=== PATIENT | female | born 1995 | race Caucasian/White ===

== ENCOUNTER 2017-01-19 21:25 | Emergency (ER) | payer OTHER ==
[~2017-01-19] VITALS: Ht 167.6 cm; Wt 92.4 kg
[~2017-01-19 21:25] MED LIST: BCPILLS PO; PHEN37.585 PO; SPIR25TA PO
[2017-01-19 21:31] VITALS: TEMP 36.7; Ht 167.6 cm; Wt 92.4 kg
[2017-01-19] MEDS ORDERED: SODIUM CHLORIDE 0.9% 1000ML 1,000 ML IV STA ×3 (21:47→23:19)
[2017-01-19] MEDS ORDERED: ONDANSETRON INJ 2 MG/ML 2 ML VIAL IV STA (21:47)
[2017-01-19] MEDS ORDERED: DICYCLOMINE HCL 10 MG/ML 2 ML AMP IM ONE (22:00)
[2017-01-19 22:17] LABS: BASO % 0.1 %; BASO ABS # 0.01 K/uL (0-0.2); COMPLETE YES; EOS % 0.1 %; HEMATOCRIT 42.8 % (37-47); IG% 0.3 %; LYMPH ABS # 1.26 K/uL (1.2-3.4); MEAN CELL VOLUME 81.8 fL (80-100); MEAN CORPUSCULAR HEMOGLOBIN 29.4 pg (25-34); MEAN PLATELET VOLUME 10.7 fL (7.4-10.4); MONO % 5.5 %; PLATELET COUNT 262 K/uL (130-400); RED BLOOD COUNT 5.23 M/uL (4.2-5.4); WHITE BLOOD COUNT 9.03 K/uL (4.8-10.8)
[2017-01-19 22:30] VITALS: O2SAT 100
[2017-01-19 22:37] LABS: CALCIUM 8.4 mg/dl (8.5-10.1); CREATININE 0.65 mg/dl (0.60-1.20); MAGNESIUM 1.8 mg/dl (1.8-2.4); POTASSIUM 3.3 mmol/L (3.5-5.1)
[2017-01-19 22:38] LABS: PREG INTERNAL NEGATIVE QC NEG CLEAR BACKGROUND; PREG INTERNAL POSITIVE QC POS CONTROL LINE
[2017-01-19] MEDS ORDERED: POTASSIUM CHLORIDE 10 MEQ TABCR PO STA (22:48)
[2017-01-19] MEDS ORDERED: KETOROLAC TROMETHAMINE 30 MG/ML VIAL IV STA (23:19)
[2017-01-20 00:31] LABS: URINE APPEARANCE CLOUDY (CLEAR); URINE BILIRUBIN NEG (NEG); URINE COLOR DK YELLOW; URINE EPITHELIAL CELL AUTO >30 /lpf (0-5); URINE NITRITE NEG (NEG); URINE SPECIFIC GRAVITY 1.028 (1.000-1.030); UROBILINOGEN NEG (NEG); ZZUR CULT IF INDIC CLEAN CATCH NO
[2017-01-20 00:47] LABS: MANUAL MICROSCOPIC REQUIRED? NO; REVIEW REQ? YES
[2017-01-20] MEDS ORDERED: DiphenhydrAMINE HCL 50 MG/ML VIAL IV STA (01:07)
[2017-01-20] MEDS ORDERED: METOCLOPRAMIDE HCL INJ 5 MG/ML 2 ML VIAL IV STA (01:07)
[2017-01-20 01:29] LABS: URINE MUCUS PRESENT (NONE PRSENT)
[2017-01-20] MEDS ORDERED: BENTYL HOME PACK 10 MG VIAL PO ONE (01:30)
[2017-01-20] MEDS ORDERED: ONDANSETRON HOME PACK 4MG OD TAB PO ONE (01:30)
[2017-01-20 01:32] LABS: URINE PATH CASTS 5-10 GRANULAR CASTS /lpf (0)
--- NOTE | 2017-01-20 01:44 | EMERGENCY ROOM VISIT NOTE ---
History First contact with patient: 21:36 Chief Complaint: ABDOMINAL PAIN Stated Complaint: DIZZY, ABD PAIN, DIARRHEA Nursing Triage Summary: pt reports " I have been pooping for 3 days it is so bad it makes me cry, and at work today I pooped my pants multiple time" pt denies blood in stool, + abdominal cramping , denies NV History of Present Illness The patient is a 21 year old female who presents to the Emergency Room with complaints of nausea, lightheadedness, fatigue and diarrhea for the past 3 days. Patient is on well water. No recent antibiotics. No recent travel. No sick contacts. No bad food exposure. Patient with several episodes of diarrhea that is nonbloody nonblack and tarry non-mucousy in nature. 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 Patient complains of some abdominal cramping with no localized pain. Patient denies chest pain, dyspnea, fever, cough, congestion, vomiting, back pain, urinary symptoms. She is tolerate by mouth fluids but has a lack of appetite. Review of Systems See HPI for pertinent positives & negatives. A total of 10 systems reviewed and were otherwise negative. Past Medical/Surgical History Acne Social History Smoking Status: Never Smoker Alcohol Use: occasionally Drug Use: none Marital Status: single, in relationship Housing Status: lives with family Occupation Status: employed Current/Historical Medications Scheduled Control Pills ( Control Pills), 1 TAB PO DAILY Spironolactone (Aldactone), 25 MG PO QPM Physical Exam Vital Signs Date Time Temp Pulse Resp B/P (MAP) Pulse Ox O2 Delivery O2 Flow Rate FiO2 01/20/17 00:41 95 20 110/69 99 Room Air 01/19/17 22:34 90 01/19/17 22:30 91 20 149/77 100 Room Air 01/19/17 22:30 100 Room Air 01/19/17 21:31 36.7 118 20 126/92 98 Room Air Physical Exam VITALS: Vitals are noted on the nurse's note and reviewed by myself. Vital signs stable. GENERAL: Pleasant female, in no acute distress, nondiaphoretic, well-developed well-nourished. SKIN: The skin was without rashes, erythema, edema, or bruising. There is no tenting of the skin. Capillary reflex less than 2 seconds. HEAD: Normocephalic atraumatic. EARS: External auditory canals clear, tympanic membranes pearly monteiro without erythema or effusion bilaterally. EYES: Pupils equal round and reactive to light and accommodation. Conjunctivae without injection, sclerae without icterus. Extraocular movements intact. NOSE: Patent, turbinates without inflammation or discharge. MOUTH: Mucous membranes mildly dry. Pharynx without erythema or exudate. Uvula midline. Airway patent. Tongue does not deviate. NECK: Supple without nuchal rigidity. No lymphadenopathy. No thyromegaly. Cervical spine is nontender. No JVD. HEART: Regular rate and rhythm without murmurs gallops or rubs. LUNGS: Clear to auscultation bilaterally without wheezes, rales or rhonchi. No dullness to percussion. No retractions or accessory muscle use. ABDOMEN: Positive bowel sounds x 4. Normal tympanic percussion. Soft, nontender, without masses or organomegaly. Damno sign negative. No guarding or rebound tenderness. No CVA tenderness MUSCULOSKELETAL: No muscle atrophy, erythema, or edema noted. NEURO: Patient was alert and oriented to person place and time. Normal sensation to light and sharp touch. No focal neurological deficits. Medical Decision & Procedures Laboratory Results 01/19/17 22:00 Red Blood Count 5.23, Mean Corpuscular Volume 81.8, Mean Corpuscular Hemoglobin 29.4, Mean Corpuscular Hemoglobin Concent 36.0, Mean Platelet Volume 10.7, Neutrophils (%) (Auto) 80.0, Lymphocytes (%) (Auto) 14.0, Monocytes (%) (Auto) 5.5, Eosinophils (%) (Auto) 0.1, Basophils (%) (Auto) 0.1, Neutrophils # (Auto) 7.22, Lymphocytes # (Auto) 1.26, Monocytes # (Auto) 0.50, Eosinophils # (Auto) 0.01, Basophils # (Auto) 0.01 01/19/17 22:00 Test 01/19/17 22:00 01/19/17 23:50 White Blood Count 9.03 K/uL (4.8-10.8) Red Blood Count 5.23 M/uL (4.2-5.4) Hemoglobin 15.4 g/dL (12.0-16.0) Hematocrit 42.8 % (37-47) Mean Corpuscular Volume 81.8 fL (80-100) Mean Corpuscular Hemoglobin 29.4 pg (25-34) Mean Corpuscular Hemoglobin Concent 36.0 g/dl (32-36) Platelet Count 262 K/uL (130-400) Mean Platelet Volume 10.7 fL (7.4-10.4) Neutrophils (%) (Auto) 80.0 % Lymphocytes (%) (Auto) 14.0 % Monocytes (%) (Auto) 5.5 % Eosinophils (%) (Auto) 0.1 % Basophils (%) (Auto) 0.1 % Neutrophils # (Auto) 7.22 K/uL (1.4-6.5) Lymphocytes # (Auto) 1.26 K/uL (1.2-3.4) Monocytes # (Auto) 0.50 K/uL (0.11-0.59) Eosinophils # (Auto) 0.01 K/uL (0-0.5) Basophils # (Auto) 0.01 K/uL (0-0.2) RDW Standard Deviation 38.4 fL (36.4-46.3) RDW Coefficient of Variation 12.7 % (11.5-14.5) Immature Granulocyte % (Auto) 0.3 % Immature Granulocyte # (Auto) 0.03 K/uL (0.00-0.02) Anion Gap 11.0 mmol/L (3-11) Est Creatinine Clear Calc Drug Dose 156.7 ml/min Estimated GFR () 147.1 Estimated GFR (Non- 126.9 BUN/Creatinine Ratio 14.0 (10-20) Calcium Level 8.4 mg/dl (8.5-10.1) Magnesium Level 1.8 mg/dl (1.8-2.4) Total Bilirubin 0.6 mg/dl (0.2-1) Direct Bilirubin 0.2 mg/dl (0-0.2) Aspartate Amino Transf (AST/SGOT) 25 U/L (15-37) Alanine Aminotransferase (ALT/SGPT) 22 U/L (12-78) Alkaline Phosphatase 70 U/L (45-117) Total Protein 7.1 gm/dl (6.4-8.2) Albumin 3.2 gm/dl (3.4-5.0) Human Chorionic Gonadotropin, Qual NEG (NEG) Urine Color DK YELLOW Urine Appearance CLOUDY (CLEAR) Urine pH 6.0 (4.5-7.5) Urine Specific Rarden 1.028 (1.000-1.030) Urine Protein 1+ (NEG) Urine Glucose (UA) NEG (NEG) Urine Ketones 1+ (NEG) Urine Occult Blood NEG (NEG) Urine Nitrite NEG (NEG) Urine Bilirubin NEG (NEG) Urine Urobilinogen NEG (NEG) Urine Leukocyte Esterase NEG (NEG) Urine WBC (Auto) 5-10 /hpf (0-5) Urine RBC (Auto) 0-4 /hpf (0-4) Urine Hyaline Casts (Auto) 10-30 /lpf (0-5) Urine Epithelial Cells (Auto) >30 /lpf (0-5) Urine Bacteria (Auto) 1+ (NEG) Urine Renal Epithelial Cells /lpf (0-5) Urine Pathogenic Casts 5-10 GRANULAR CASTS /lpf (0) Urine Mucus PRESENT (NONE PRSENT) Date/Time Source Procedure Growth Status 01/19/17 23:50 Stool C.difficile Toxin B Gene (PCR) - Final No C. difficile toxin B gene detected Complete Medications Administered Medications (Trade) Dose Ordered Sig/May Route Start Time Stop Time Status Last Admin Dose Admin Sodium Chloride 1,000 ml @ 999 mls/hr Q1H1M STAT IV 01/19/17 21:47 01/19/17 22:47 DC 01/19/17 22:26 999 MLS/HR Dicyclomine HCl (Bentyl Inj) 20 mg NOW ONCE IM 01/19/17 22:00 01/19/17 22:01 DC 01/19/17 22:28 20 MG Ondansetron HCl (Zofran Inj) 4 mg NOW STAT IV 01/19/17 21:47 01/19/17 21:49 DC 01/19/17 22:27 4 MG Potassium Chloride (Klor-Con M10) 20 meq NOW STAT PO 01/19/17 22:48 01/19/17 22:49 DC 01/19/17 23:35 20 MEQ Ketorolac Tromethamine (Toradol Inj) 30 mg NOW STAT IV 01/19/17 23:19 01/19/17 23:20 DC 01/19/17 23:35 30 MG Sodium Chloride 1,000 ml @ 999 mls/hr Q1H1M STAT IV 01/19/17 23:19 01/20/17 00:19 DC 01/19/17 23:19 999 MLS/HR Metoclopramide HCl (Reglan Inj) 10 mg NOW STAT IV 01/20/17 01:07 01/20/17 01:08 DC 01/20/17 01:30 10 MG Diphenhydramine HCl (Benadryl Inj) 12.5 mg NOW STAT IV 01/20/17 01:07 01/20/17 01:08 DC 01/20/17 01:29 12.5 MG ED Course Prior records/ancillary studies reviewed. Triage Nursing notes reviewed. Additional history obtained from the family. The patient's history was concerning for nausea diarrhea, and abdominal pain. Differential diagnosis: Etiologies such as gastroenteritis, food borne illness, infections, appendicitis , diverticulitis, inflammatory bowel disease, obstruction, GI bleed, biliary pathology, as well as others were entertained. Physical examination findings: As above. Abdominal examination revealed no localized tenderness. Vital signs reviewed and revealed stable. ER treatment provided: IV hydration 1 L NSS. Hong Sosa On reassessment the patient felt better. Patient was tolerating p.o. intake. Diagnostics interpretation by me: The labs revealed no leukocytosis. Negative urine. Negative C. difficile. Stool cultures pending This appears to be consistent with nausea and diarrhea. Stool cultures are pending. Patient is neurovascularly and neurologically intact. She is well- appearing. She did not have acute abdomen on exam. She is tolerating fluids. She is advised to rest, stay well-hydrated and to follow a bland diet for next few days and follow-up family care here in the ER sooner for abdominal pain, fevers, vomiting, worsening signs or symptoms or as needed. By the evaluation outlined above emergent etiologies such as appendicitis, diverticulitis, obstruction, cardiac sources, mesenteric ischemia, aortic pathology, inflammatory bowel disease, renal colic, PUD, biliary pathology, UTI, as well as others were deemed relatively unlikely. The pt informed about the findings as listed above. All questions were answered and pleased with the treatment. Return instructions were outlined and the patient was discharged in stable condition. Outpatient prescription management: hong sosa Referral: The patient was referred to their primary care physician for follow-up in 2 to 3 days for a recheck of the current condition. Case reviewed with my attending Medical Decision As above Medication Reconcilliation Current Medication List: was personally reviewed by me Blood Pressure Screening Patient's blood pressure: Normal blood pressure Impression Primary Impression: Diarrhea Additional Impressions: Nausea Dehydration Departure Information Dispostion Home / Self-Care Condition GOOD Referrals Fabienne Calvert PA (PCP) Patient Instructions My [facility] Additional Instructions DO NOT drive, drink alcohol, operate machinery, or perform dangerous activities today. You were given medications in the ER that can affect your ability to safely function or operate a vehicle. Bentyl tablets 10mg: Take one every six hours as needed for abdominal cramping. Zofran(odansetron) tablets 4mg: Take one and allow it to dissolve in your mouth every four to six hours as needed for nausea or vomiting. Ibuprofen(Motrin, Advil) may be used for fever or pain. Use 600mg every six hours as needed. Take with food. Avoid using more than 2400mg in a 24 hour period. Do not use 2400mg per day for more than three consecutive days without physician direction. Prolonged inappropriate use can lead to stomach upset or ulcers. (AND/OR) Acetaminophen(Tylenol) may be used for fever or pain. Use 1000mg every six hours as needed. Avoid using more than 3000mg in a 24 hour period. Rest and drink plenty of fluids as tolerated. Slow sips of water or sports drinks are recommended instead of large amounts all at once. Continue current medications. Once your stomach is settled start with a clear liquid diet (jello, soup broth, etc.) and then advance as tolerated. You should avoid full, heavy meals for about 24 hrs from the time your symptoms resolved. Recommend bland diet for the next few days. Return to the ER for persistent vomiting, fevers, abdominal pain, chest pains, difficulty breathing, black or bloody stools, worsening of your condition, or as needed. Follow up with your primary physician in 2-3 days for a recheck of your current condition. Problem Qualifiers Primary Impression: Diarrhea Diarrhea type: unspecified type Qualified Codes: R19.7 - Diarrhea, unspecified
[2017-01-20 01:59] VITALS: BP 121/71; PULSE 88; O2SAT 95
[2017-01-21 17:12] LABS: O&P GIARDIA AG NOT DETECTED (NOT DETECTED)
== END 2017-01-20 01:59 | disposition home or self-care (01) ==
LOC: C.EDB 21:27 → C.EDA 01-20 01:59
DX: R19.7 Diarrhea, unspecified (principal); R11.0 Nausea; E86.0 Dehydration; Z79.3 Long term (current) use of hormonal contraceptives

== ENCOUNTER 2019-02-05 13:30 | Inpatient (IN) ==
[2019-02-05] MEDS ORDERED: OXYTOCIN 30 UNITS/500 ML BAG IV PRN (18:59)
[2019-02-05] MEDS ORDERED: DINOPROSTONE 10 MG INSERT PV ONE (18:59)
[2019-02-05 19:31] LABS: Hematocrit (blood only) 32.7 % (37-47); Hemoglobin 11.1 g/dL (12.0-16.0); Mean Corpuscular Volume 85.6 fL (80-100); Mean Platelet Volume 11.3 fL (7.4-10.4); Platelet Count 321 K/uL (130-400); RDW Coefficient of Variation 14.2 % (11.5-14.5); RDW Standard Deviation 43.5 fL (36.4-46.3); Red Blood Count 3.82 M/uL (4.2-5.4); White Blood Count 13.48 K/uL (4.8-10.8)
[2019-02-05 19:34] LABS: Mean Corpuscular Hgb Conc 33.9 g/dL (32-36)
[2019-02-05 19:51] LABS: Alanine Aminotransferase 15 U/L (12-78); Albumin Level 2.3 gm/dl (3.4-5.0); Aspartate Aminotransferase 12 U/L (15-37); BUN Creatinine Ratio 13.2 (10-20); Blood Urea Nitrogen 7 mg/dl (7-18); Calcium 8.4 mg/dl (8.5-10.1); Carbon Dioxide 22 mmol/L (21-32); Chloride 109 mmol/L (98-107); Creatinine Clr Calc Pharmacy 203.3 ml/min; Est GFR (African American) > 150.0; Est GFR (Non-African American) 132.2; Glucose 94 mg/dl (70-99); Potassium 3.2 mmol/L (3.5-5.1); Sodium 142 mmol/L (136-145)
[2019-02-05 19:54] LABS: Albumin Globulin Ratio 0.6 (0.9-2); Alkaline Phosphatase 152 U/L (45-117); Bilirubin,Total 0.6 mg/dl (0.2-1); Globulin 3.9 gm/dl (2.5-4.0); Total Protein 6.2 gm/dl (6.4-8.2)
[2019-02-05] MEDS ORDERED: BUTORPHANOL TARTRATE 1 MG/ML VIAL IV PRN (21:51)
--- NOTE | 2019-02-05 21:57 | Labor Progress Brief Note ---
Date of Service February 05, 2019 Induction for Class II obesity pt doing well'H&P done FHR; CAT1 Ctx minimal VE 1-2/50/-3 Cervidil #1 inserted in vagina Results & Data Vital Signs (Past 12 Hours) Vital Signs Temp Pulse Resp BP 02/05/19 21:49 88 139/80 02/05/19 19:09 37 C 18 02/05/19 18:59 100 H 140/75
--- NOTE | 2019-02-05 23:47 | History and Physical Report ---
DATE OF ADMISSION: 02/05/2019 HISTORY OF PRESENT ILLNESS: The patient is a 23-year-old G1, P0, due date 02/07/2019, making her 39 weeks and 5 days today. The patient presented to labor and delivery for labor induction due to class 2 morbid obesity. has been unremarkable. On arrival to labor and delivery, she had no shortness of breath, no chills, no fever, no rupture of membranes. LABORATORIES: Blood type O negative, antibody negative, rubella immune, GBS negative. PAST MEDICAL HISTORY: None. PAST SURGICAL HISTORY: The patient has history of tonsillectomy. ALLERGIES: The patient has no known drug allergies. FAMILY HISTORY: Noncontributory. PHYSICAL EXAMINATION: GENERAL: Well-nourished white female in no acute distress. HEART: S1, S2, regular rhythm and rate. LUNGS: Clear to auscultation bilaterally. ABDOMEN: Gravid. EXTREMITIES: No cyanosis, clubbing or edema. PELVIC: 22 cm, 50% effaced, -3. Estimated weight by Isael's is 7-1/2 pounds. ASSESSMENT AND PLAN: A 23-year-old G1, P0 at 39+ weeks, here for labor induction due to class 2 obesity. The patient is being induced. Anticipate vaginal delivery.
--- NOTE | 2019-02-06 10:07 | Obstetrical Progress Note ---
Date of Service February 06, 2019 Subjective Cervidil pulled out. T Cat 1. Cervix 1-2/60/-3. Will start Cytotec 50 mcg orally every 4 hours to induce labor. Results & Data Vital Signs (Past 12 Hours) Vital Signs Temp Pulse Resp BP 02/06/19 09:24 102 H 139/67 02/06/19 07:45 36.7 C 20 02/06/19 07:40 95 H 145/66 H 02/06/19 06:17 85 132/65 02/06/19 03:56 36.9 C 96 H 18 136/86 02/06/19 01:39 97 H 129/57 L 02/06/19 01:38 16
[2019-02-06] MEDS: miSOPROStol 50 MCG TAB PO SCH ×2 (11:33→15:33)
[2019-02-06] MEDS ORDERED: ONDANSETRON INJ 2 MG/ML 2 ML VIAL IV PRN ×2 (16:43→18:46)
[2019-02-06] MEDS: LACTATED RINGER'S 1,000 ML IV PRN ×2 (18:26→20:48)
[2019-02-06] MEDS ORDERED: ePHEDrine sulfate 50 MG/ML AMP ONE (18:36)
[2019-02-06] MEDS ORDERED: fentaNYL citrate 100 MCG/2 ML VIAL ONE (18:36)
[2019-02-06] MEDS ORDERED: BUPIVACAINE 0.25% 30 ML VIAL ONE (18:36)
[2019-02-06] MEDS ORDERED: fentaNYL 2MCG/ML ROPIV 1.25MG/ML 100 ML BAG EPI ONE (18:37)
[2019-02-06] MEDS ORDERED: NALOXONE HCL 0.4 MG/1 ML VIAL/CARP IV PRN (18:46)
[2019-02-06] MEDS ORDERED: DiphenhydrAMINE HCL 50 MG/ML VIAL IV PRN (18:46)
[2019-02-06] MEDS ORDERED: ePHEDrine sulfate 50 MG/ML AMP IV PRN (18:46)
[2019-02-06] MEDS ORDERED: fentaNYL 2MCG/ML ROPIV 1.25MG/ML 100 ML BAG EPI PRN (18:46)
[2019-02-06] MEDS ORDERED: NALOXONE HCL 1 MG in SODIUM CHLORIDE 0.9% 1000ML 1,000 ML IV PRN (18:46)
[2019-02-06] MEDS ORDERED: NALBUPHINE HCL INJ 10 MG/ML AMP IV PRN (18:46)
--- NOTE | 2019-02-06 18:50 | Anesthesiology Consultation ---
Date of Service February 06, 2019 Assessment & Plan Chart Review Chart Review: Patient NOT seen in Pre Admission Testing and Acceptable Risk for Labor Epidural Consults Requested none ASA ASA2 Proposed Anesthesia Anesthesia Type: Labor Epidural and CSE Risk / Benefits Reviewed With: PT / POA / Parent / Guardian, Accepts Plan and Informed Consent Obtained History Height/Weight Height: 5 ft 6 in Weight: 113.398 kg Allergies Allergy/AdvReac Type Severity Reaction Status Date / Time No Known Allergies Allergy Verified 02/05/19 19:02 Medications Home Medications Medication Instructions Recorded Confirmed Last Taken Vitamin 1 tab PO DAILY 01/29/19 02/05/19 02/04/19 20:00 Active Medications Generic Name Dose Route Start Last Admin Trade Name Freq PRN Reason Stop Dose Admin Butorphanol Tartrate 2 mg 02/05/19 21:51 02/06/19 17:11 Stadol IV 03/07/19 21:50 2 mg Q4 PRN Administration Pain Lactated Ringer's 1,000 mls @ 125 mls/hr 02/05/19 18:59 02/06/19 18:26 Lr IV 02/07/19 18:58 999 mls/hr .Q8H PRN Administration L&D Protocol Protocol Misoprostol 50 mcg 02/06/19 12:00 02/06/19 15:33 Cytotec PO 03/08/19 11:59 50 mcg Q4 AYAKA Administration Ondansetron HCl 4 mg 02/06/19 16:43 02/06/19 16:55 Zofran IV 03/08/19 16:42 4 mg Q4H PRN Administration Nausea NPO Date Last Intake of Fluids: 02/06/19 Time Last Intake of Fluids: 18:00 Date Last Intake of Solids: 02/06/19 Time Last Intake of Solids: 13:00 Exercise / Class Metabolic Activity II 4-5 Yardwork/Stairs/Walk up hill Past Anesthesia History No Hx of Anesthesia Complications and No Family Hx of Anesthesia Complications History of PONV No Hx of PONV and No Hx of Motion Sickness Social History Smoking Status: Never smoker Hx Alcohol Use: No Hx Substance Use: No Review of Systems no chest pain or sob Physical Exam Vital Signs Last Vital Signs Temp 37.0 C 02/06/19 15:07 Pulse 79 02/06/19 18:46 Resp 20 02/06/19 15:07 BP 146/73 H 02/06/19 18:46 ENMT Mouth: no TMJ abnormality Thyromental Distance: > or= 3.5 Finger Breadths Mallampati Class: II Neck normal visual inspection Respiratory normal respiratory effort Auscultation: lungs clear to auscultation bilaterally Cardiovascular Rate/Rhythm: regular rate and regular rhythm Musculoskeletal Spine: normal cervical ROM Neurologic moves all extremities Psychiatric Orientation: alert and oriented x 3 Testing Laboratory Results 02/05/19 19:18 02/05/19 19:18
[2019-02-06] MEDS ORDERED: OXYTOCIN 30 UNITS/500 ML BAG IV PRN ×2 (19:47→23:22)
--- NOTE | 2019-02-06 19:47 | Obstetrical Progress Note ---
Date of Service February 06, 2019 Physical Exam Genitourinary: OB Exam Abdomen: + irregular contractions Manual OB Exam: + cervical dilation 5 cm, + cervical effacement 100% and + station -2 OB Exam Monitor Tracing: + external FHT monitor used, + external uterine monitor used and + category I Will start Oxytocin to augment contractions since not in a regular pattern Results & Data Vital Signs (Past 12 Hours) Vital Signs Temp Pulse Resp BP Pulse Ox 02/06/19 19:44 104 H 94 02/06/19 19:41 100 H 99 02/06/19 19:38 85 137/63 02/06/19 19:36 87 96 02/06/19 19:31 90 98 02/06/19 19:26 98 H 97 02/06/19 19:23 95 H 138/65 02/06/19 19:21 94 H 134/63 96 02/06/19 19:19 93 H 135/60 02/06/19 19:17 93 H 134/60 02/06/19 19:16 98 H 97 02/06/19 19:15 92 H 132/61 02/06/19 19:13 90 136/65 02/06/19 19:12 85 136/64 02/06/19 19:11 101 H 99 02/06/19 19:05 88 97 02/06/19 19:00 99 H 97 02/06/19 18:56 98 H 152/87 H 02/06/19 18:55 94 H 98 02/06/19 18:46 79 146/73 H 02/06/19 15:07 37.0 C 02/06/19 15:04 90 141/70 H 02/06/19 13:30 88 139/65 02/06/19 13:29 36.9 C 02/06/19 11:15 37 C 96 H 20 129/60 02/06/19 10:09 18 02/06/19 09:24 102 H 139/67
--- NOTE | 2019-02-06 21:20 | Obstetrical Progress Note ---
Date of Service February 06, 2019 Physical Exam Genitourinary: Manual OB Exam: + cervical dilation 8 cm, + cervical effacement 100% and + station 0 OB Exam Monitor Tracing: + external FHT monitor used, + external uterine monitor used and + category I Results & Data Vital Signs (Past 12 Hours) Vital Signs Temp Pulse Resp BP Pulse Ox 02/06/19 21:16 97 H 97 02/06/19 21:11 84 97 02/06/19 21:09 94 H 129/66 91 02/06/19 21:06 114 H 94 02/06/19 21:01 108 H 97 02/06/19 20:56 104 H 90 02/06/19 20:53 81 145/67 H 02/06/19 20:51 83 97 02/06/19 20:46 81 96 02/06/19 20:41 74 97 02/06/19 20:38 82 143/67 H 02/06/19 20:36 83 98 02/06/19 20:31 79 97 02/06/19 20:26 80 97 02/06/19 20:24 81 138/65 02/06/19 20:21 85 96 02/06/19 20:16 86 97 02/06/19 20:11 95 H 97 02/06/19 20:10 92 H 129/59 L 02/06/19 20:06 97 H 96 02/06/19 20:01 105 H 96 02/06/19 19:56 92 H 96 02/06/19 19:54 96 H 130/62 02/06/19 19:51 97 H 97 02/06/19 19:46 93 H 97 02/06/19 19:44 104 H 94 02/06/19 19:41 100 H 99 02/06/19 19:38 85 137/63 02/06/19 19:36 87 96 02/06/19 19:31 90 98 02/06/19 19:26 98 H 97 02/06/19 19:23 95 H 138/65 02/06/19 19:21 94 H 134/63 96 02/06/19 19:19 93 H 135/60 02/06/19 19:17 93 H 134/60 02/06/19 19:16 98 H 97 02/06/19 19:15 36.5 C 92 H 18 132/61 02/06/19 19:13 90 136/65 02/06/19 19:12 85 136/64 02/06/19 19:11 101 H 99 02/06/19 19:05 88 97 02/06/19 19:00 99 H 97 02/06/19 18:56 98 H 152/87 H 02/06/19 18:55 94 H 98 02/06/19 18:46 79 146/73 H 02/06/19 15:07 37.0 C 20 02/06/19 15:04 90 141/70 H 02/06/19 13:30 88 139/65 02/06/19 13:29 36.9 C 20 02/06/19 11:15 37 C 96 H 20 129/60 02/06/19 10:09 18 02/06/19 09:24 102 H 139/67
--- NOTE | 2019-02-06 22:19 | Obstetrical Progress Note ---
Date of Service February 06, 2019 Physical Exam Genitourinary: Manual OB Exam: + cervical dilation 10 cm, + cervical effacement 100% and + station 0 OB Exam Monitor Tracing: + external FHT monitor used and + external uterine monitor used will start to push Results & Data Vital Signs (Past 12 Hours) Vital Signs Temp Pulse Resp BP Pulse Ox 02/06/19 22:16 101 H 83 L 02/06/19 22:11 109 H 97 02/06/19 22:09 95 H 141/77 H 02/06/19 22:07 84 94 02/06/19 22:06 82 94 02/06/19 22:01 104 H 96 02/06/19 21:56 125 H 99 02/06/19 21:54 91 H 155/78 H 02/06/19 21:51 99 H 98 02/06/19 21:46 126 H 97 02/06/19 21:41 81 97 02/06/19 21:38 104 H 136/88 02/06/19 21:36 102 H 97 02/06/19 21:31 83 96 02/06/19 21:26 86 96 02/06/19 21:24 91 H 131/90 91 02/06/19 21:21 94 H 97 02/06/19 21:16 97 H 97 02/06/19 21:11 84 97 02/06/19 21:09 36.7 C 94 H 18 129/66 91 02/06/19 21:06 114 H 94 02/06/19 21:01 108 H 97 02/06/19 20:56 104 H 90 02/06/19 20:53 81 145/67 H 02/06/19 20:51 83 97 02/06/19 20:46 81 96 02/06/19 20:41 74 97 02/06/19 20:38 82 143/67 H 02/06/19 20:36 83 98 02/06/19 20:31 79 97 02/06/19 20:26 80 97 02/06/19 20:24 81 138/65 02/06/19 20:21 85 96 02/06/19 20:16 86 97 02/06/19 20:11 95 H 97 02/06/19 20:10 92 H 129/59 L 02/06/19 20:06 97 H 96 02/06/19 20:01 105 H 96 02/06/19 19:56 92 H 96 02/06/19 19:54 96 H 130/62 02/06/19 19:51 97 H 97 02/06/19 19:46 93 H 97 02/06/19 19:44 104 H 94 02/06/19 19:41 100 H 99 02/06/19 19:38 85 137/63 02/06/19 19:36 87 96 02/06/19 19:31 90 98 02/06/19 19:26 98 H 97 02/06/19 19:23 95 H 138/65 02/06/19 19:21 94 H 134/63 96 02/06/19 19:19 93 H 135/60 02/06/19 19:17 93 H 134/60 02/06/19 19:16 98 H 97 02/06/19 19:15 36.5 C 92 H 18 132/61 02/06/19 19:13 90 136/65 02/06/19 19:12 85 136/64 02/06/19 19:11 101 H 99 02/06/19 19:05 88 97 02/06/19 19:00 99 H 97 02/06/19 18:56 98 H 152/87 H 02/06/19 18:55 94 H 98 02/06/19 18:46 79 146/73 H 02/06/19 15:07 37.0 C 02/06/19 15:04 90 141/70 H 02/06/19 13:30 88 139/65 02/06/19 13:29 36.9 C 02/06/19 11:15 37 C 96 H 20 129/60
[2019-02-06] MEDS ORDERED: SUPERCREAM 0.870% 15 GM JAR EXT PRN (23:22)
[2019-02-06] MEDS ORDERED: DIPHTHERIA/TETANUS/PERTUSSIS 0.5 ML SYR/VIAL IM ONE (23:22)
[2019-02-06] MEDS ORDERED: HYDROCORTISONE ACETATE 25 MG SUPP PR PRN (23:22)
[2019-02-06] MEDS ORDERED: MEASLES, MUMPS & RUBELLA VIRUS VIAL SQ ONE (23:22)
[2019-02-06] MEDS ORDERED: BISACODYL 10 MG SUPP PR PRN (23:22)
[2019-02-06] MEDS ORDERED: ACETAMINOPHEN 325 MG TAB PO PRN (23:22)
[2019-02-06] MEDS ORDERED: BENZOCAINE 20% AER SPR 82.5 GM CAN EXT PRN (23:22)
--- NOTE | 2019-02-06 23:30 | Delivery Summary ---
Vaginal Delivery Summary Date of Service February 06, 2019 Vaginal Delivery Summary Delivery Note live male BOBBY over intact perineum with tight nuchal cord x1 reduced at delivery. Apgars 7/9 weight pending. Cord blood obtained followed by spontaneous delivery of intact placenta with 3vc. No tears. EBL 250 ml. Final sponge and instrument count are correct. Mon and baby stable
[2019-02-07 06:32] LABS: Hemoglobin 10.7 g/dL (12.0-16.0); Mean Corpuscular Hgb Conc 33.4 g/dL (32-36); Mean Platelet Volume 11.1 fL (7.4-10.4); Platelet Count 346 K/uL (130-400); RDW Coefficient of Variation 14.4 % (11.5-14.5); RDW Standard Deviation 44.8 fL (36.4-46.3); Red Blood Count 3.72 M/uL (4.2-5.4); White Blood Count 22.17 K/uL (4.8-10.8)
--- NOTE | 2019-02-07 07:39 | Anesthesia Procedure Note ---
Date of Service February 07, 2019 Anesthesia Post Epidural Note Vital Signs Vital Signs: Temp Pulse Resp BP Pulse Ox 37.0 C 107 H 16 134/74 98 02/07/19 04:00 02/07/19 04:00 02/07/19 04:00 02/07/19 04:00 02/07/19 04:00 Pain Intensity Perineal: Pain Intensity: 2 Notes Mental Status: alert / awake / arousable Nausea / Vomiting: adequately controlled Pain: adequately controlled Airway Patency, RR, SpO2: stable & adequate BP & HR: stable & adequate Hydration State: stable & adequate Neuraxial Anesthesia: was administered and sensory block is resolving Anesthetic Complications: no major complications apparent and Pt Satisfied with anesthetic care Epidural: Removed without complications and With tip intact
[2019-02-07] MEDS: DOCUSATE SODIUM 100 MG CAP PO SCH ×2 (08:52→20:08)
[2019-02-07] MEDS: PRENATAL VITAMIN 1 TAB PO SCH (08:52)
[2019-02-07] MEDS: FERROUS SULFATE 325 MG TAB PO SCH (08:53)
[2019-02-07] MEDS: IBUPROFEN 600 MG TAB PO PRN ×2 (08:53→21:40)
[2019-02-07] MEDS ORDERED: NON-FORMULARY MEDICATION (Prenatal Vit-Iron Fum-Folic Ac [Prenatal Vitamin] 1 TAB) PO SCH (09:00)
--- NOTE | 2019-02-07 10:42 | Obstetrical Progress Note ---
Date of Service February 07, 2019 Assessment & Plan (1) Normal delivery: PPD #1 pt doing well anticipate disch tomorrow Subjective Ambulation: ambulating normally Voiding: no voiding problems Passing Gas:: Yes Diet Tolerance:: regular diet Lochia:: Small Feeding Type:: breast feeding Review of Systems All systems reviewed & are unremarkable except as noted in HPI & below Physical Exam Constitutional WD/WN, vitals as above well developed and well nourished Eyes PERRL, conjunctivae normal, anicteric sclerae Neck trachea midline, no thyromegaly Respiratory normal respiratory effort, lungs clear to auscultation Auscultation: no crackles, no rales and no wheezes Cardiovascular RRR, no murmur, no edema Gastrointestinal (Abdomen) normal bowel sounds, soft, nontender, no hepatosplenomegaly Uterus is below umbilicus Musculoskeletal no cyanosis or clubbing, extremities motor strength 5/5 Skin no rashes, warm and dry Neurologic patellar DTR's 2+ bilat, sensation intact Psychiatric A+Ox3, euthymic affect Genitourinary normal external appearance Results & Data Vital Signs (Past 12 Hours) Vital Signs Temp Pulse Pulse Resp BP BP Pulse Ox 02/07/19 10:25 36.5 C 109 H 18 117/78 97 02/07/19 07:15 36.5 C 109 H 18 117/78 97 02/07/19 04:00 37.0 C 107 H 16 134/74 98 02/07/19 01:45 36.9 C 104 H 16 127/81 96 02/07/19 01:21 37.2 C 112 H 16 120/59 L 02/07/19 01:06 111 H 119/57 L 02/07/19 00:51 93 H 16 132/62 02/07/19 00:36 104 H 125/63 02/07/19 00:21 100 H 16 124/61 02/07/19 00:06 110 H 18 130/63 02/06/19 23:51 108 H 18 135/60 02/06/19 23:36 112 H 18 135/61 02/06/19 23:21 120 H 18 122/49 L 02/06/19 23:19 128 H 93 02/06/19 23:16 123 H 96 02/06/19 23:11 119 H 96 02/06/19 23:09 124 H 94 02/06/19 23:08 122 H 142/65 H 02/06/19 23:06 160 H 96 02/06/19 23:03 129 H 94 02/06/19 23:01 131 H 95 02/06/19 22:57 126 H 94 02/06/19 22:56 139 H 97 02/06/19 22:55 127 H 141/63 H 02/06/19 22:52 147 H 93 02/06/19 22:51 125 H 94 02/06/19 22:47 145 H 94 02/06/19 22:46 150 H 93 02/06/19 22:41 116 H 95
[2019-02-07] MEDS ORDERED: BISACODYL 5 MG TABEC PO SCH (20:00)
[2019-02-08] MEDS: IBUPROFEN 600 MG TAB PO PRN ×2 (05:35→09:24)
[2019-02-08 07:00] LABS: Hematocrit (blood only) 29.2 % (37-47); Hemoglobin 9.6 g/dL (12.0-16.0)
[2019-02-08] MEDS: DOCUSATE SODIUM 100 MG CAP PO SCH (09:14)
[2019-02-08] MEDS: PRENATAL VITAMIN 1 TAB PO SCH (09:14)
[2019-02-08] MEDS: FERROUS SULFATE 325 MG TAB PO SCH (09:14)
--- NOTE | 2019-02-08 09:57 | Obstetrical Progress Note ---
Date of Service February 08, 2019 Physical Exam Physical Exam: abdomen soft and non tender vaginal bleeding scant to moderate no calf tenderness ambulating well hgb 9.6 Results & Data Vital Signs (Past 12 Hours) Vital Signs Temp Pulse Resp BP Pulse Ox 02/08/19 07:45 36.7 C 97 H 20 104/69 97 02/07/19 23:00 36.8 C 88 20 122/79 98
== END 2019-02-08 14:25 | disposition home or self-care (01) | DRG 806 ==
LOC: 4S1 18:41 → 4S2 02-07 01:45